=== PATIENT | female | born 1960 | race African-American/Black ===

== ENCOUNTER 2016-08-22 12:31 | Emergency (ER) | payer OTHER | END 2016-08-22 12:45 | disposition home or self-care (01) | LOC: ER 12:31 | DX: S49.91XA Unspecified injury of right shoulder and upper arm, initial encounter (principal); I10 Essential (primary) hypertension; E78.5 Hyperlipidemia, unspecified; E11.9 Type 2 diabetes mellitus without complications; Z88.0 Allergy status to penicillin; Z88.4 Allergy status to anesthetic agent; X58.XXXA Exposure to other specified factors, initial encounter | CPT/HCPCS: 73030-RT; 99283 ==